=== PATIENT | female | born 1985 | race Caucasian/White ===

== ENCOUNTER 2017-05-20 15:57 | Outpatient (CLI) | payer BC ==
--- NOTE | 2017-05-21 10:33 | MRI ---
MRI OF RIGHT KNEE PERFORMED WITHOUT CONTRAST ENHANCEMENT: Date: 05/20/17 HISTORY: Right knee pain for 3-4 months. Injured running in the past and more recently skiing. FINDINGS: The anterior, as well as posterior cruciate ligaments are intact. The medial, as well as lateral menisci are normal in shape and appearance. The medial and lateral collateral ligaments, and iliotibial band regions are unremarkable. There is some articular cartilage irregularity to the lateral facet of the patella. There is suggesti on of some fissuring. There is some marrow edema change associated with the patella in this region. M edial and lateral patellar retinaculum, and quadriceps and patellar tendons are normal. IMPRESSION: 1. No evidence of cruciate ligament or meniscal injury. 2. Chondromalacia changes of the patella, specifically changes involve the lateral facet where there is some surface irregularity and some fissuring. There is some underlying marrow edema change within the patella. POS: C
== END 2017-05-20 15:58 | disposition home or self-care (01) ==
LOC: MRI 15:57
PROVIDERS: ATTEND Family Medicine
DX: M25.561 Pain in right knee (principal); M22.41 Chondromalacia patellae, right knee; R60.0 Localized edema